=== PATIENT | male | born 1965 | race Caucasian/White ===

== ENCOUNTER 2021-06-20 16:13 | Emergency (ER) | payer BC ==
[2021-06-20] MEDS ORDERED: HYDROmorphone 1 MG/ML Syringe IM ONE (16:44)
[2021-06-20] MEDS ORDERED: Lidocaine 1% 20 ML MDV INJECT ONE (16:46)
[2021-06-20] MEDS ORDERED: Bacitracin Oint 1 GM U/D Packet TOP ONE (16:46)
--- NOTE | 2021-06-20 16:49 | EDM.PDOC ---
ED HPI GENERAL MEDICAL PROBLEM - General Chief Complaint: Laceration Stated Complaint: CUT LEFT TOP OF HAND / LEFT THUMB Time Seen by Provider: 06/20/21 16:46 Source of Information: Reports: Patient, Family History Limitations: Reports: No Limitations - History of Present Illness INITIAL COMMENTS - FREE TEXT/NARRATIVE: pt had the spring on a garage door come down on his left thumb and lacerated the area. The laceration is on the dorsum of the thumb. Onset: Today, Sudden Duration: Hour(s): Location: Reports: Upper Extremity, Left Associated Symptoms: Reports: No Other Symptoms Left Finger-Thumb Pain Score (Numeric/FACES): 8 - Related Data Allergies Allergy/AdvReac Type Severity Reaction Status Date / Time No Known Allergies Allergy Verified 06/20/21 16:39 Home Meds: Home Meds NK [No Known Home Meds] 06/20/21 [History] Social & Family History - Tobacco Use Tobacco Use Status *Q: Never Tobacco User - Recreational Drug Use Recreational Drug Use: No ED ROS GENERAL - Review of Systems Review Of Systems: See Below Constitutional: Reports: No Symptoms HEENT: Reports: No Symptoms Respiratory: Reports: No Symptoms Cardiovascular: Reports: No Symptoms Endocrine: Reports: No Symptoms GI/Abdominal: Reports: No Symptoms : Reports: No Symptoms Musculoskeletal: Reports: Other (pt arrived very uncomfortable with a laceration of the left thumb. ) Neurological: Reports: No Symptoms ED EXAM, SKIN/RASH Exam: See Below Text/Narrative:: pt arrived with a 2 inch laceration on the dorsum of the left thumb. He was putting a garage door in and the spring hit the thumb. He is having difficulty moving the tip of the thumb. Last summer he had a fracture of the thumb and there was some dislocation at that time. Exam Limited By: No Limitations General Appearance: Alert, Anxious, Severe Distress Extremities: Other (pt has a 2 inch flap type laceration on the dorsum of the left thumb. he has some bone fragments present that can be seen. ) Course - Vital Signs Last Recorded V/S: Last Vital Signs Temp 36.7 C 06/20/21 16:38 Pulse 80 06/20/21 16:38 Resp 20 06/20/21 16:38 BP 119/85 06/20/21 16:38 Pulse Ox 95 06/20/21 16:38 - Orders/Labs/Meds Orders: Active Orders 24 hr Category Date Time Status Fingers Thumb Lt FA [CR] Stat Exams 06/20/21 16:44 Taken Acetaminophen/oxyCODONE [Percocet 325-5 MG] Med 06/20/21 17:45 Once 1 tab PO ONETIME ONE Meds: Medications Discontinued Medications Generic Name Dose Route Start Last Admin Trade Name Freq PRN Reason Stop Dose Admin Bacitracin 1 dose 06/20/21 16:46 06/20/21 16:54 Bacitracin Oint 1 Gm U/D Packet TOP 06/20/21 16:47 1 dose ONETIME ONE Administration Cefazolin Sodium 1 gm 06/20/21 17:44 Cefazolin 1 Gm Vial IM 06/20/21 17:45 ONETIME ONE Hydromorphone HCl 1 mg 06/20/21 16:44 06/20/21 16:50 Hydromorphone 1 Mg/Ml Syringe IM 06/20/21 16:45 1 mg ONETIME ONE Administration Lidocaine HCl 20 ml 06/20/21 16:46 06/20/21 16:54 Lidocaine 1% 20 Ml Mdv INJECT 06/20/21 16:47 20 ml ONETIME ONE Administration - Re-Assessments/Exams Free Text/Narrative Re-Assessment/Exam: 06/20/21 17:48 xray of the thumb and there is a spiral type laceration of the first phalanx of the thumb. . This was discussed with Dr Sullivan and he will look at the films tonight and will get ahold of the pt in the am and let huim know when to come in He was given ancef 1 gm im. Departure - Departure Time of Disposition: 17:51 Disposition: Home, Self-Care 01 Condition: Fair Clinical Impression: Fracture dislocation of thumb, Laceration - Discharge Information Referrals: PCP,Unknown [Primary Care Provider] - Forms: ED Department Discharge Care Plan Goals: elevate, cool pack over dressing, percocet 5/325 q6h prn for pain, Orth Dr Sarmiento will call pt in am as to when to come to the hosp. Keflex 500mg tid, percocet 5/325 q6h prn for pain. Sepsis Event Note (ED) - Evaluation Sepsis Screening Result: No Definite Risk - Focused Exam Vital Signs: Vital Signs Temp Pulse Resp BP Pulse Ox 06/20/21 16:38 36.7 C 80 20 119/85 95 - My Orders Last 24 Hours: My Active Orders 06/20/21 16:44 Fingers Thumb Lt FA [CR] Stat 06/20/21 17:45 Acetaminophen/oxyCODONE [Percocet 325-5 MG] 1 tab PO ONETIME ONE - Assessment/Plan Last 24 Hours: My Active Orders 06/20/21 16:44 Fingers Thumb Lt FA [CR] Stat 06/20/21 17:45 Acetaminophen/oxyCODONE [Percocet 325-5 MG] 1 tab PO ONETIME ONE
[2021-06-20] MEDS ORDERED: ceFAZolin 1 GM Vial IM ONE (17:44)
[2021-06-20] MEDS ORDERED: Acetaminophen/oxyCODONE 325-5 MG Tab PO ONE (17:45)
--- NOTE | 2021-06-20 18:08 | CRLCR ---
For Patients: As a result of the Century Cures Act, medical imaging exams and procedure reports are released immediately into your electronic medical record. You may view this report before your referring provider. If you have questions, please contact your health care provider. Indication: Laceration to the thumb. Technique: Left thumb 3 views. Comparison: None Findings: Bones: Spiral fracture all of the proximal phalanx of the thumb shows some adjacent calcific density and could be healing. Nondisplaced fracture of the distal phalanx of the thumb. Osseous fragment adjacent to the distal 1st metacarpal is likely an additional fracture. Joint spaces: Unremarkable. Soft tissues: Soft tissue laceration and swelling. No radiopaque foreign body. Impression: Fractures of the proximal and distal phalanx of the thumb, as well as the distal 1st metacarpal, of uncertain acuity. Soft tissue laceration and soft tissue swelling. Dictated by Kendrick Harris MD @ 06/20/2021 6:06:31 PM (Electronically Signed)
[2021-06-20] MEDS ORDERED: Water For Injection, Sterile 20 ML ONE (18:10)
== END 2021-06-20 18:25 | disposition home or self-care (01) ==
LOC: JP.ED 16:13
DX: S62.522A Displaced fracture of distal phalanx of left thumb, initial encounter for closed fracture (principal); S62.512A Displaced fracture of proximal phalanx of left thumb, initial encounter for closed fracture; W26.8XXA Contact with other sharp object(s), not elsewhere classified, initial encounter
CPT/HCPCS: 73140; 96372; 99283; A9270; J0690; J1170